=== PATIENT | female | born 1970 | race Hispanic/Latino ===

== ENCOUNTER 2022-02-20 20:23 | Emergency (ER) | payer SELFPAY ==
[2022-02-20] VITALS (12 sets, daily range): BP systolic 103–154; BP diastolic 57–103
[~2022-02-20] VITALS: Ht 152.4 cm; Wt 60.5 kg
[~2022-02-20 20:23] MED LIST: LORTAB 5 OR; NO HOME MEDS
[2022-02-20 21:12] LABS: BASO% 0.4 % (0-3); EOS% 1.7 % (0-8); HEMATOCRIT 41.4 % (37.0-47.0); HEMOGLOBIN 14.5 g/dl (12.0-16.0); IMMATURE GRANULOCYTES 0.1 % (0.0-5.0); LYMPH% 44.6 % (15-41); MEAN CORPUSCULAR HGB 30.5 pG CALC (26.0-32.0); MONO% 5.2 % (2-13); NEUT# 3.35 thou/uL (2.00-7.15); RED BLOOD COUNT 4.76 mill/uL (4.20-5.60); RED CELL DISTRI WIDTH 12.3 % (11.5-15.5)
[2022-02-20 21:30] LABS: ALBUMIN 4.9 g/dL (3.2-5.0); ALKALINE PHOSPHATASE 101 u/l (38-126); ANION GAP 12 (6-22 (CALC)); BUN 13 mg/dL (7-17); BUN/CREATININE RATIO 20 (12-20 (CALC)); CARBON DIOXIDE 27 mmol/l (22-30); CHLORIDE 106 mmol/l (95-108); CREATININE 0.6 mg/dL (0.5-1.0); GFR FOR AFR.AMER. > 60 ML/MIN (>=60 (CALC)); GFR OTHER RACES > 60 ML/MIN (>=60 (CALC)); PROTHROMBIN TIME 9.8 SECONDS (9.0-12.5); SODIUM 140 mmol/l (137-146); TOTAL PROTEIN 9.1 g/dL (6.3-8.2)
[2022-02-20 21:32] LABS: BILIRUBIN, TOTAL 0.6 mg/dL (0.0-1.4); SGOT/AST 29 u/l (14-36)
[2022-02-20 23:23] LABS: URINE BILIRUBIN - DIPSTICK NEGATIVE (NEGATIVE); URINE BLOOD DIPSTICK NEGATIVE (NEGATIVE); URINE COLOR YELLOW; URINE GLUCOSE - DIPSTICK NEGATIVE (NEGATIVE); URINE KETONE NEGATIVE (NEGATIVE); URINE LEUK ESTERASE NEGATIVE (NEGATIVE); URINE PH 6.5 (4.5-8.0); URINE PROTEIN - DIPSTICK NEGATIVE (NEG-TRACE); URINE UROBILINOGEN - DIPSTICK 0.2 E.U./dL (0.2)
[2022-02-20 23:29] LABS: URINE NITRITE - DIPSTICK NEGATIVE (Negative)
[2022-02-20] MEDS ORDERED: LEXAPRO10 MG PO (23:35)
[2022-02-21 00:15] VITALS: BP 108/51
[2022-02-21 00:30] VITALS: BP 108/51
== END 2022-02-21 00:30 | disposition home or self-care (01) | DRG 880 ==
LOC: ED 20:23
PROVIDERS: Family Medicine
DX: F41.9 Anxiety disorder, unspecified (principal)